=== PATIENT | female | born 1950 | race Caucasian/White ===

== ENCOUNTER 2019-02-09 00:16 | Emergency (ER) | payer OTHER, MEDICARE ==
[~2019-02-09] VITALS: Ht 157.5 cm; Wt 81.5 kg
[2019-02-09 00:21] VITALS: Ht 157.5 cm; Wt 81.5 kg
--- NOTE | 2019-02-09 00:34 | ERD ---
ER Documentation Chief Complaint Chief Complaint BIB RA FROM HOME FOR HYPERTENSION AND BLURRY VISION STARTED TONIGHT HPI The patient is a 68-year-old female, presenting to the ER because of bilateral eye blurred vision that began around 10 PM, had left cataract surgery a week ago and right cataract surgery about a month ago. She then became very anxious therefore her blood pressure was elevated. She denies headache, facial pain, neck pain, chest pain, dyspnea, abdominal pain, vomiting, dysuria, diarrhea. She does not smoke nor drink Past medical history: Hypertension, diabetes mellitus, CAD, hypothyroidism Past surgical history: CABG ROS All systems reviewed and are negative except as per history of present illness. Allergies Allergies: Coded Allergies: No Known Allergy (Unverified , 02/09/19) Physical Exam Vitals Vital Signs Date Temp Pulse Resp B/P (MAP) Pulse Ox O2 O2 Flow FiO2 Time Delivery Rate 02/09/19 71 17 172/60 97 Room Air 03:00 (97) 02/09/19 70 14 184/65 97 Room Air 02:30 (104) 02/09/19 72 14 161/57 96 Room Air 02:00 (91) 02/09/19 69 15 178/68 98 Room Air 01:00 (104) 02/09/19 70 15 205/67 98 Room Air 00:36 (113) 02/09/19 98.9 81 19 206/185 100 00:21 (192) Physical Exam Const: No acute distress. Head: Atraumatic. Eyes: Normal Conjunctiva. ENT: Normal External Ears, Nose and Mouth. Neck: Full range of motion. No meningismus. Resp: Clear to auscultation bilaterally. Cardio: Regular rate and rhythm. Abd: Soft, non distended, normal bowel sounds, non tender. Skin: No petechiae or rashes. Back: No midline or flank tenderness. Ext: No cyanosis, or edema. Neur: Awake and alert. No focal deficit Psych: Normal Mood and Affect. Result Diagram: 02/09/1910202/09/19 010 Results 24 hrs Laboratory Tests Test 02/09/19 01:03 White Blood Count 9.5 10^3/ul Red Blood Count 3.60 10^6/ul Hemoglobin 10.4 g/dl Hematocrit 31.9 % Mean Corpuscular Volume 88.6 fl Mean Corpuscular Hemoglobin 28.9 pg Mean Corpuscular Hemoglobin Concent 32.6 g/dl Red Cell Distribution Width 12.6 % Platelet Count 264 10^3/UL Mean Platelet Volume 10.0 fl Immature Granulocytes % 0.400 % Neutrophils % 76.4 % Lymphocytes % 15.6 % Monocytes % 6.1 % Eosinophils % 1.0 % Basophils % 0.5 % Nucleated Red Blood Cells % 0.0 /100WBC Immature Granulocytes # 0.040 10^3/ul Neutrophils # 7.2 10^3/ul Lymphocytes # 1.5 10^3/ul Monocytes # 0.6 10^3/ul Eosinophils # 0.1 10^3/ul Basophils # 0.1 10^3/ul Nucleated Red Blood Cells # 0.0 10^3/ul Prothrombin Time 12.5 Sec Prothrombin Time Ratio 1.0 INR International Normalized Ratio 0.92 Activated Partial Thromboplast Time 38.8 Sec Sodium Level 142 mmol/L Potassium Level 5.1 mmol/L Chloride Level 106 mmol/L Carbon Dioxide Level 25 mmol/L Anion Gap 11 Blood Urea Nitrogen 37 mg/dl Creatinine 1.51 mg/dl Est Glomerular Filtrat Rate mL/min 34 mL/min Glucose Level 256 mg/dl Calcium Level 9.5 mg/dl Current Medications Medications Dose Sig/Caridad Start Time Status Last (Trade) Ordered Route PRN Stop Time Admin Dose Reason Admin Labetalol 10 mg ONCE ONCE 02/09/19 DC 02/09/19 HCl IV 01:30 01:35 (Labetalol) 02/09/19 01:31 Procedures/[place] [address] Radiology Main Line: [phone] DIAGNOSTIC IMAGING REPORT Patient: RUBENS VALDIVIA : 1950 Age: 68 Sex: F MR #: [id number] DOS: 02/09/19 0101 Ordering MD: ADAMS MAYBERRY MD Location: E/R Room/Bed: PROCEDURE: CT BRAIN WITHOUT CONTRAST CLINICAL INDICATION: 68-year-old female with headaches and visual disturbance. TECHNIQUE: The study was performed utilizing [email or web address] 64-slice CT [facility]. Direct axial sections were obtained from the foramen magnum to the vertex without the use of intravenous contrast material. One or more of the following dose reduction techniques were utilized: automated exposure control, adjustment of the mA and/or kV according to patient's size or use of iterative reconstruction technique. DICOM images are available. Sagittal and coronal reformations were obtained. The images were viewed on a PACS workstation. CTD/vol = 36.88 mGy; Total Exam DLP = 634.23 mGy.cm. COMPARISON: None. FINDINGS: There is [id number] degree of diffuse cortical and central atrophy with compensatory ventricular enlargement. There is no evidence for mass effect or midline shift. There are periventricular areas of decreased density consistent with microangiopathic ischemic changes. There is an old lacunar infarct within the right putamen. There is no evidence for acute intra or extra-axial blood. Calcifications are seen within the intracranial carotid arteries bilaterally. The bony calvarium is intact. The partially visualized paranasal sinuses and mastoid air cells are without significant abnormal soft tissue. IMPRESSION: 1. Fijh-yh-gclnqozh diffuse atrophy. 2. Microangiopathic ischemic changes. 3. Old right basal ganglia lacunar infarct. 4. Vascular calcifications. .John Lezama MD, MD Date Time Electronically viewed and signed by .John Lezama MD, MD on 02/09/2019 01:51 .M/ CC: ADAMS MAYBERRY MD [id number] EKG: Read by emergency physician Rate/Rhythm: Normal Sinus Rhythm 68 beats/min QRS, ST, T-waves: No ST elevation, no T inversion, LAE, RBBB Impression: Abnormal EKG MEDICAL MAKING DECISION: The patient is a 68-year-old female, presenting with acute bilateral pleural effusion, most likely due to recent cataract surgery. I do not suspect any neurological disease. 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 I advised the patient to follow-up with the primary physician in about 2-3 days, sooner if needed and return if any concern. Disclaimer: Inadvertent spelling and grammatical errors are likely due to EHR/dictation software use and do not reflect on the overall quality of patient care. Also, please note that the electronic time recorded on this note does not necessarily reflect the actual time of the patient encounter. ADAMS MAYBERRY MD Feb 09, 2019 00:34
[2019-02-09] MEDS ORDERED: LABETALOL HCL 20MG INJ IV ONE (01:30)
[2019-02-09 03:00] VITALS: BP 172/60; PULSE 71; RESP 17
== END 2019-02-09 03:20 | disposition home or self-care (01) ==
LOC: E/R 00:16
DX: H53.8 Other visual disturbances (principal); I10 Essential (primary) hypertension; E03.9 Hypothyroidism, unspecified; E11.9 Type 2 diabetes mellitus without complications; I25.10 Atherosclerotic heart disease of native coronary artery without angina pectoris; I16.0 Hypertensive urgency; N17.9 Acute kidney failure, unspecified; D64.9 Anemia, unspecified; R51 Headache; Z95.1 Presence of aortocoronary bypass graft
CPT/HCPCS: 36415; 70450; 80048; 85025; 85610; 85730; 93005; 96374; Z7502; Z7610